=== PATIENT | female | born 1970 | race African-American/Black ===

== ENCOUNTER 2022-11-01 15:31 | Emergency (ER) | payer BC, MEDICAID ==
[~2022-11-01] VITALS: Ht 160 cm; Wt 100.5 kg
[~2022-11-01 15:31] MED LIST: ACET-2708 MT; ALBU6.7H3 INH; DIPH25CA83 MT; FERR324T4 MT; FLUO40CA8 MT
[2022-11-01 18:45] VITALS: BP 142/77
[2022-11-01] MEDS ORDERED: IBUPROFEN 600MG TABLET PO ONE (18:45)
[2022-11-01] MEDS ORDERED: MELO-105 MT (19:46)
[2022-11-01] MEDS ORDERED: ALBU6.7H3 INH (19:56)
== END 2022-11-01 20:22 | disposition home or self-care (01) ==
LOC: ER 15:31
DX: M25.551 Pain in right hip (principal); M79.602 Pain in left arm; J45.909 Unspecified asthma, uncomplicated; Z91.018 Allergy to other foods; Z91.013 Allergy to seafood; Z88.0 Allergy status to penicillin; Z98.890 Other specified postprocedural states
CPT/HCPCS: 73090; 73502; 99284

== ENCOUNTER 2022-11-15 12:54 | Emergency (ER) | payer BC, MEDICAID ==
[~2022-11-15] VITALS: Ht 160 cm; Wt 100.0 kg
[~2022-11-15 12:54] MED LIST changes: +MELO-105 MT
[2022-11-15 13:05] VITALS: BP 131/58; PULSE 60; RESP 18; O2SAT 99
[2022-11-15 13:15] VITALS: TEMP 98.7
[2022-11-15] MEDS ORDERED: ACETAMINOPHEN 325MG TABLET PO ONE (13:15)
[2022-11-15] MEDS ORDERED: NAPR-681 MT (14:25)
[2022-11-15] MEDS ORDERED: CYCL25PO15 MT (14:26)
== END 2022-11-15 14:30 | disposition home or self-care (01) ==
LOC: ER 12:54
DX: M54.12 Radiculopathy, cervical region (principal); J45.909 Unspecified asthma, uncomplicated; Z91.018 Allergy to other foods; Z91.013 Allergy to seafood; Z88.0 Allergy status to penicillin; Z79.899 Other long term (current) drug therapy; Z98.890 Other specified postprocedural states
CPT/HCPCS: 99284

== ENCOUNTER 2025-04-15 06:26 | Emergency (ER) | payer MEDICARE, MEDICAID ==
[~2025-04-15] VITALS: Ht 162.6 cm; Wt 81.0 kg
[~2025-04-15 06:26] MED LIST changes: +CYCL25PO15 MT; +NAPR-681 MT
[2025-04-15 06:29] VITALS: O2SAT 100
[2025-04-15 07:21] LABS: BASOPHILS % 0.7 % (0.0-2.0); EOSINOPHILS % 0.2 % (0.0-5.0); HEMATOCRIT. 35.1 % (36.0-48.0); HEMOGLOBIN. 11.2 g/dL (12.0-16.0); LYMPHOCYTES % 10.9 % (20.0-50.0); MEAN PLATELET VOLUME 7.2 fl (7.4-10.4); MONOCYTES % 10.5 % (2.0-8.0); NEUTROPHILS % 77.7 % (40.0-76.0); PLATELET 364 x1000/uL (130-400); RED BLOOD CELL COUNT 4.63 mill/uL (4.2-5.4); RED CELL DISTRIBUTION WIDTH 16.6 % (11.6-14.6)
[2025-04-15 07:36] LABS: CREATININE 1.0 mg/dL (0.6-1.0); ETHANOL BLOOD < 10 mg/dL (<10); UREA NITROGEN BLOOD 11 mg/dL (9-23)
[2025-04-15 07:37] LABS: ASPARTATE AMINOTRANSFERASE 34 IU/L (<34); HCG SCREEN NEGATIVE
[2025-04-15 07:38] LABS: BILIRUBIN DIRECT 0.2 mg/dL (<=3.0); BILIRUBIN TOTAL 0.7 mg/dL (0.1-1.0); PROTEIN TOTAL 8.2 g/dL (6.0-8.3)
[2025-04-15] MEDS: IBUPROFEN 600MG TABLET PO ONE (07:57)
[2025-04-15] MEDS: METOCLOPRAMIDE HCL 10MG/2ML VIAL IM ONE (07:58)
[2025-04-15] MEDS: ACETAMINOPHEN 325MG TABLET PO ONE (07:58)
[2025-04-15 09:16] LABS: *AMPHETAMINES SCREEN URINE NEGATIVE (NEGATIVE); *BARBITURATES SCREEN URINE NEGATIVE (NEGATIVE); *BENZODIAZEPINES SCREEN URINE NEGATIVE (NEGATIVE); *COCAINE SCREEN URINE NEGATIVE (NEGATIVE); CANNABINOID URINE SCREEN NEGATIVE (NEGATIVE); ECSTASY MDMA SCREEN URINE NEGATIVE (NEGATIVE); METHADONE URINE SCREEN NEGATIVE (NEGATIVE); OPIATES URINE SCREEN NEGATIVE (NEGATIVE); PHENCYCLIDINE URINE SCREEN NEGATIVE (NEGATIVE)
[2025-04-15 14:55] VITALS: BP 142/77; PULSE 98; RESP 18; TEMP 36.9; O2SAT 99
[2025-04-16] MEDS ORDERED: ARIPIPRAZOLE 5MG TABLET PO SCH (09:00)
[2025-04-16] MEDS ORDERED: FLUOXETINE HCL 20MG CAPSULE PO SCH (09:00)
[2025-04-16 12:11] LABS: CLARITY URINE TURBID (CLEAR); COLOR URINE DARK YELLOW (YELLOW); GLUCOSE URINE NEGATIVE (NEGATIVE); KETONES URINE 1+ (NEGATIVE); LEUKOCYTE ESTERASE URINE TRACE (NEGATIVE); NITRITE URINE NEGATIVE (NEGATIVE); OCCULT BLOOD URINE 2+ (NEGATIVE); PH URINE 5.5 (4.5-8.0); PROTEIN URINE 2+ (NEGATIVE); SPECIFIC GRAVITY URINE 1.020 (1.005-1.030); UROBILINOGEN URINE 1.0 E.U./dL (0.2-1.0)
[2025-04-16 12:43] LABS: AMORPHOUS SEDIMENT URINE 4+ /lpf; SQUAMOUS EPITHELIAL CELL URINE 2+ /lpf (RARE/1+)
[2025-04-16 12:47] LABS: BACTERIA URINE 1+; RBC URINE NONE SEEN /hpf (0-2)
== END 2025-04-15 15:29 ==
LOC: ER 06:33
DX: R45.851 Suicidal ideations (principal); R51.9 Headache, unspecified; R11.2 Nausea with vomiting, unspecified; J45.909 Unspecified asthma, uncomplicated; Z79.1 Long term (current) use of non-steroidal anti-inflammatories (NSAID); Z88.0 Allergy status to penicillin; Z91.013 Allergy to seafood; Z79.899 Other long term (current) drug therapy; Z20.822 Contact with and (suspected) exposure to COVID-19
CPT/HCPCS: 80076; 80305; 80048; 81003; 80307; 80329; 80320; 84703; 83690; 85025; 36415; 70450; 96372; 99291; 87426; J2765; G0480